=== PATIENT | male | born 1980 | race Hispanic/Latino ===

== ENCOUNTER 2018-06-14 10:24 | Inpatient (IN) | payer OTHER ==
[~2018-06-14] VITALS: Ht 162.6 cm; Wt 45.9 kg
[2018-06-14] MEDS ORDERED: SODIUM CHLORIDE 0.9% 500ML 500 ML IV STA (11:02)
[2018-06-14] MEDS ORDERED: RISPERDONE PO (11:30)
[2018-06-14] MEDS ORDERED: CALCIUM CARBON500 MG PO (11:30)
[2018-06-14] MEDS ORDERED: DOCUSATE SODIUM PO (11:30)
[2018-06-14] MEDS ORDERED: BENZTROPINE MESY1 MG PO (11:30)
[2018-06-14] MEDS ORDERED: VALPROIC A250 MG/5 M PO (11:30)
[2018-06-14] MEDS ORDERED: VITAMIN D PO (11:30)
[2018-06-14] MEDS ORDERED: NYSTATIN-TRIAMC15 GM TOP (11:30)
--- NOTE | 2018-06-14 12:56 | Diagnostic Imaging Report ---
Examination: Single AP view of the chest. COMPARISON: None. INDICATION: Cerebral palsy patient with abnormal behavior DISCUSSION: The lungs are reasonably well inflated. No focal airspace consolidation, pleural effusion, or pneumothorax. Heart size is normal when accounting for AP technique and reverse lordotic positioning. The esophagus is dilated and air-filled. Partially visualized abdomen shows a massively distended, air-filled stomach with multiple air-filled loops of small and large bowel. No acute osseous abnormality. IMPRESSION: No acute cardiopulmonary abnormality. Distended, air-filled esophagus and partially visualized infradiaphragmatic bowel likely reflective of ileus. Signed by: Dr. Darren Humphreys M.D. on 06/14/2018 12:52 PM
--- NOTE | 2018-06-14 13:00 | Diagnostic Imaging Report ---
Exam: Abdominal film Clinical History: Cerebral palsy, patient not acting right Comparison: None. DISCUSSION: Frontal view of the abdomen shows diffuse gaseous distention of the small or large bowel. There are several mildly dilated loops of small bowel in the central abdomen which measure approximately 4.0 cm. There is small amount of air is noted in the rectum, with presence of prominent stool. No abnormal calcifications. No definite pneumoperitoneum. Generalized osteopenia. Degenerative changes seen in bilateral hip joints and lumbosacral spine, with leftward curvature. IMPRESSION: 1. Diffuse gaseous distention of the small and large bowel. Several mildly dilated loops of small bowel are noted in the central abdomen. Small amount of air is noted in the rectum, with presence of prominent stool. This may be represent obstruction secondary to impaction The staff physician below has personally reviewed this exam on the date of dictation. Signed by: Dr. Frank Dave M.D. on 06/14/2018 12:56 PM
[2018-06-14] MEDS ORDERED: CEFOXITIN 1GM/ DEXTROSE 50ML ML IV SCH (14:00)
[2018-06-14] MEDS ORDERED: ONDANSETRON HCL INJ 2 MG/ML VIAL IV PRN (14:00)
[2018-06-14] MEDS ORDERED: CEFOXITIN 1GM/ DEXTROSE 50ML 50 ML IV SCH (14:00)
--- NOTE | 2018-06-14 14:30 | Diagnostic Imaging Report ---
EXAMINATION: CT of the abdomen and pelvis without contrast. TECHNIQUE: Spiral CT images of the abdomen and pelvis were performed from the lung bases to the lesser trochanters. No intravenous contrast was given per physician's request. Coronal and sagittal reformatted images were obtained. COMPARISON: KUB 06/14/2018 CLINICAL HISTORY:Abdominal distention, history of cerebral palsy DISCUSSION: ABSENCE OF INTRAVENOUS CONTRAST DECREASES SENSITIVITY FOR DETECTION OF FOCAL LESIONS AND VASCULAR PATHOLOGY. ABDOMEN/PELVIS: LOWER THORAX: Lung bases are clear. HEPATOBILIARY: No focal hepatic lesions. No intra or extrahepatic biliary ductal dilation. GALLBLADDER: No radio-opaque stones or sludge. No wall thickening. SPLEEN: No splenomegaly. PANCREAS: No focal masses or ductal dilatation. ADRENALS: No adrenal nodules. KIDNEYS/URETERS: No hydronephrosis, stones, contour abnormalities . Mild left pelviectasis. Left extrarenal pelvis. PELVIC ORGANS/BLADDER: Bladder is grossly unremarkable, without focal lesions or wall thickening. PERITONEUM/RETROPERITONEUM: No free air or fluid. LYMPH NODES: No intra-abdominal,retroperitoneal, pelvic or inguinal lymphadenopathy. VESSELS: Unremarkable for noncontrast exam. GI TRACT: Diffuse gaseous distention of the small and large bowel, with a few dilated loops of mid to distal ileum, measuring 4.5 cm in diameter (series 2, image 48). Other loops of small bowel bowel have normal caliber, without a definite transition point. The large bowel is normal in caliber. Prominent retained stool in the distal sigmoid extending to the rectum which appears hardened (for example series 2, images 71-78). No wall thickening. Stomach is moderately distended. BONES AND SOFT TISSUES: No aggressive lytic lesions. Mild leftward curvature of the lumbosacral spine. Generalized osteopenia. Soft tissues are grossly unremarkable. IMPRESSION: 1. Diffuse gaseous distention of the small or large bowel. There are a few dilated loops of mid to distal ileum which measure 4.5 cm in diameter. Other loops of small bowel are normal in caliber, without a definite transition point. The large bowel is normal in caliber. Given the prominent retained stool in the distal sigmoid extending to the rectum, findings are suggestive of mild obstruction secondary to impaction. No pneumoperitoneum. Signed by: Dr. Frank Dave M.D. on 06/14/2018 2:26 PM
[2018-06-14] MEDS: SODIUM CHLORIDE 0.9% 1000ML 1,000 ML IV SCH ×2 (15:00→17:24)
[2018-06-14] MEDS ORDERED: MORPHINE SULFATE 2 MG/ML SYR IV STA (16:27)
[2018-06-14] MEDS ORDERED: ONDANSETRON HCL INJ 2 MG/ML VIAL IV ONE (16:45)
[2018-06-14 17:04] VITALS: BP 114/72
--- NOTE | 2018-06-14 17:21 | Diagnostic Imaging Report ---
Examination: Single AP view of the chest. COMPARISON: Chest one view 06/14/2018, CT abdomen and pelvis 06/14/2018 INDICATION: Suspected aspiration IMPRESSION: 1. Lines and Tubes: Enteric tube in place, with distal tip coiled in the stomach body. 2. Lungs are mildly hypoinflated but grossly clear, without consolidation or effusion. 3. Cardiomediastinal silhouette is normal when accounting for AP technique. Pulmonary vasculature is normal. 4. No acute bony abnormalities. 5. Gaseous distention of the small and large bowel is again noted. Signed by: Dr. Frank Dave M.D. on 06/14/2018 5:17 PM
[2018-06-14 17:49] VITALS: BP 114/72
[2018-06-14 20:00] VITALS: BP 116/73
[2018-06-15] VITALS (8 sets, daily range): BP systolic 100–137; BP diastolic 57–93
[2018-06-15] MEDS: CEFOXITIN SOD 1 GM VIAL IV SCH ×3 (01:56→17:30)
[2018-06-15 05:08] LABS: BASOPHILS % 0.4 % (0.0-1.0); EOSINOPHILS # (AUTO) 0.1 (0.0-0.4); EOSINOPHILS % 0.5 % (0.0-6.0); HEMATOCRIT 33.8 % (38.2-49.6); HEMOGLOBIN 11.6 g/dL (14.0-18.0); LYMPHOCYTES % 28.8 % (18.0-39.1); MEAN CORPUSCULAR HEMOGLOBIN 32.1 pg (28-32); MEAN CORPUSCULAR HGB CONC 34.3 g/dL (31-35); MEAN CORPUSCULAR VOLUME 93.6 fL (81-99); MONOCYTES # (AUTO) 1.2 (0.2-0.8); MONOCYTES % 11.5 % (4.4-11.3); NEUTROPHILS # (AUTO) 6.1 (2.1-6.9); NEUTROPHILS % 58.6 % (38.7-80.0); PLATELET COUNT 264 x10e3/uL (140-360); RED BLOOD COUNT 3.61 x10e6/uL (4.3-5.7); RED CELL DISTRIBUTION WIDTH 11.8 % (11.7-14.4)
[2018-06-15 05:40] LABS: ALANINE AMINOTRANSFERASE 12 IU/L (0-55); ALBUMIN 3.3 g/dL (3.5-5.0); ALBUMIN/GLOBULIN RATIO 1.1 (0.8-2.0); ALKALINE PHOSPHATASE 70 IU/L (40-150); ANION GAP 13.7 mmol/L (8-16); BLOOD UREA NITROGEN 5 mg/dL (7-26); BUN/CREATININE RATIO 8 (6-25); CARBON DIOXIDE 22 mmol/L (22-29); CHLORIDE 108 mmol/L (98-107); CREATININE, SERUM 0.59 mg/dL (0.72-1.25); EST GLOMERULAR FILTRATION RATE > 60 ML/MIN (60-); GLUCOSE 102 mg/dL (74-118); POTASSIUM 3.7 mmol/L (3.5-5.1); SODIUM 140 mmol/L (136-145)
[2018-06-15] MEDS: SODIUM CHLORIDE 0.9% 1000ML 1,000 ML IV SCH (05:52)
[2018-06-15] MEDS ORDERED: ACETAMINOPHEN 325 MG SUPP PR PRN (11:15)
[2018-06-15] MEDS ORDERED: MAGNESIUM HYDROXIDE 30 ML UDC PO ONE (11:45)
[2018-06-15] MEDS ORDERED: MINERAL OIL 132 ML BTL PR ONE (11:45)
--- NOTE | 2018-06-15 11:48 | History and Physical ---
HPI: A 37-year-old male who has a past medical history positive for cerebral palsy, seizures, autism, psychosis, epilepsy, chronic constipation that came from the [facility] because of tremors and abdominal pain. So, patient was found to have ileus. NG tube was placed. Patient was admitted to the hospital. REVIEW OF SYSTEMS: Patient is unable to communicate with me, so we cannot get any information. PAST MEDICAL HISTORY: As per nurses' notes, seizures, he is a [facility] resident. He has history of cerebral palsy, autism, psychosis, epilepsy, chronic constipation, mental illness. ALLERGIES: HE IS NOT ALLERGIC TO ANY MEDICATION. SOCIAL HISTORY: He lives in a [facility]. We do not know if he smokes or drinks. PHYSICAL EXAMINATION VITAL SIGNS: Blood pressure 119/67, temperature 98.1, heart rate 80 per minute, respiratory rate is 20 per minute, oxygen saturation 96%. HEART: Shows regular rate and rhythm. Normal S1, S2 sounds. LUNGS: Clear bilaterally. ABDOMEN: Soft. EXTREMITIES: Show no evidence of cyanosis, edema, or trauma. He has atrophy in upper and lower extremities. LABORATORY DATA: On the BMP, sodium 140, potassium 3.7, chloride 108, CO2 of 22, BUN 55, creatinine 0.59, glucose 102. On the CBC, white blood count 10.4, hemoglobin 11.6, hematocrit 33.8, platelet count 264,000. AST 13, ALT 12, total bilirubin 0.7, alkaline phosphatase 70. CT of the abdomen showed ileus and a possible fecal impaction. Blood culture has been sent. FINAL IMPRESSION 1. Ileus. 2. Fecal impaction. 3. Anemia of chronic disease. 4. Cerebral palsy. 5. Dysphagia. PLAN OF TREATMENT: We are going to continue NG tube to suction. Continue IV fluids. Continue Zofran 4 mg IV q.4 hours as needed. Cefoxitin has been started at 1 gram IV q.[address] Vimal Mclaughlin for gastroenterology, Dr. Babatunde Levi for surgery, and we are going to repeat another KUB today. Speech therapy has been ordered also, the patient has apparent difficulty swallowing. He was on a pureed diet with thickened fluids. We are going to order Fleet enema today and then go from there. Job#: [id number] DAMIEN
--- NOTE | 2018-06-15 12:07 | Diagnostic Imaging Report ---
PROCEDURE:X-RAY ABDOMEN - KUB COMPARISON:KUB and CT Abdomen/Pelvis 06/14/18. INDICATIONS:AUTISM, BOWEL OBSTRUCTION FINDINGS: NG tube terminates in the expected location of the proximal duodenum. Air filled mildly distended small and large bowel loops are again noted. The degree of distension is similar to prior KUB on 06/14/18. Stool is again noted in the rectum. No evidence of free intraperitoneal air. Generalized osteopenia. Degenerative changes of the lower lumbar spine. CONCLUSION: Unchanged distension of small and large bowel loops with stool in the rectum. Findings may represent mild obstruction secondary to rectal fecal impaction or non-obstructive ileus. Dictated by: MARTINEZ WALKER M.D. on 06/15/2018 at 12:13 Electronically approved by: MARTINEZ WALKER M.D. on 06/15/2018 at 12:13
[2018-06-15] MEDS: DEXTROSE 5%/0.9% SOD CHL 1,000 ML IV SCH (12:10)
[2018-06-15] MEDS ORDERED: PEG (High)/E-LYTE SOLN 4,000 ML BTL PO ONE (16:15)
[2018-06-15] MEDS ORDERED: VALPROATE SODIUM PO SCH (17:00)
[2018-06-15] MEDS ORDERED: NYSTATIN TOP SCH (17:00)
[2018-06-15] MEDS ORDERED: TRIAMCIN TOP SCH (17:00)
[2018-06-15] MEDS: VALPROATE 250MG/5ML ORAL LIQ 5ml PO SCH (17:29)
[2018-06-15] MEDS: BENZTROPINE MESYLATE 1 MG TAB PO SCH (17:29)
[2018-06-15] MEDS: NYSTATIN/TRIAMCINOLONE 30 GM CR TOP SCH (17:29)
[2018-06-15] MEDS ORDERED: RISPERDONE PO SCH (21:00)
[2018-06-15] MEDS: RISPERIDONE 1 MG TAB PO SCH (22:03)
[2018-06-15] MEDS ORDERED: BISACODYL 5 MG TAB EC PO ONE (23:45)
[2018-06-16] VITALS: BP 116/68
[2018-06-16] MEDS: DEXTROSE 5%/0.9% SOD CHL 1,000 ML IV SCH ×2 (00:25→14:00)
[2018-06-16] MEDS ORDERED: BISACODYL 5 MG TAB EC PO ONE ×3 (00:30→01:30)
[2018-06-16] MEDS: CEFOXITIN SOD 1 GM VIAL IV SCH ×3 (02:11→18:32)
[2018-06-16 04:00] VITALS: BP 144/65
[2018-06-16 05:34] LABS: ANION GAP 15.3 mmol/L (8-16); BLOOD UREA NITROGEN < 5 mg/dL (7-26); CALCIUM 9.2 mg/dL (8.4-10.2); CARBON DIOXIDE 24 mmol/L (22-29); CHLORIDE 108 mmol/L (98-107); CREATININE, SERUM 0.61 mg/dL (0.72-1.25); EST GLOMERULAR FILTRATION RATE > 60 ML/MIN (60-); GLUCOSE 115 mg/dL (74-118); POTASSIUM 3.3 mmol/L (3.5-5.1); SODIUM 144 mmol/L (136-145)
[2018-06-16 05:52] LABS: BUN/CREATININE RATIO 8 (6-25)
[2018-06-16 06:09] LABS: FOLATE 17.8 ng/mL (7.0-15.4)
--- NOTE | 2018-06-16 06:14 | Diagnostic Imaging Report ---
ABDOMEN-1VIEW (KUB) Clinical history: Ileus Technique: AP view abdomen Comparison: 06/14/2018 Findings: NG tube tip seen projecting over the right upper quadrant. Hemidiaphragms are excluded from view. Interval decrease in gaseous distention of small bowel. Gas is predominantly seen throughout slightly prominent colon; resolved rectal stool burden. Unchanged bones. Impression: Improved ileus. Signed by: Dr Lilibeth Morris MD on 06/16/2018 6:11 AM
[2018-06-16 06:20] LABS: FERRITIN 44.91 ng/mL (21.81-274.66)
[2018-06-16 07:46] VITALS: BP 96/73
[2018-06-16] MEDS: DOCUSATE SODIUM LIQD 100 MG/10 ML UDC NG SCH (08:44)
[2018-06-16] MEDS: CHOLECALCIFEROL 400 UNIT TAB PO SCH (08:44)
[2018-06-16] MEDS: VALPROATE 250MG/5ML ORAL LIQ 5ml PO SCH ×2 (08:44→16:40)
[2018-06-16] MEDS: BENZTROPINE MESYLATE 1 MG TAB PO SCH ×2 (08:44→16:40)
[2018-06-16] MEDS: NYSTATIN/TRIAMCINOLONE 30 GM CR TOP SCH ×2 (08:48→16:40)
[2018-06-16] MEDS ORDERED: DOCUSATE SODIUM PO SCH (09:00)
[2018-06-16] MEDS ORDERED: VITAMIN D PO SCH (09:00)
[2018-06-16 11:34] VITALS: BP 103/78
[2018-06-16] MEDS ORDERED: MAGNESIUM HYDROXIDE 30 ML UDC PO ONE (15:10)
[2018-06-16 16:25] VITALS: BP 120/80
[2018-06-16] MEDS ORDERED: POTASSIUM CHLORIDE 20MEQ/100ML 200 ML IV ONE (17:45)
--- NOTE | 2018-06-16 18:22 | Progress Note ---
DATE: INTERNAL MEDICINE PROGRESS NOTE SUBJECTIVE: This 29-year-old male came here with abdominal distention. The abdomen is not as distended as before. He was found to have an ileus. The patient is on an NG tube with suctioning. PHYSICAL EXAMINATION VITAL SIGNS: Blood pressure 120/80. Temperature 98.8. Heart rate 82 per minute. Respiratory rate 18 per minute. Oxygen saturation 98%. HEART: Regular rhythm. Normal S1, S2 sounds. LUNGS: Clear bilaterally. ABDOMEN: Soft. EXTREMITIES: No evidence of cyanosis, edema or trauma. LABS: On the BMP, sodium 144, potassium 3.3, chloride 108, CO2 24, BUN 5, creatinine 0.61, glucose 115. On the CBC, white blood count 10.4, hemoglobin 11.6, hematocrit 33.8, platelet count 264,000. AST 13, ALT 12, total bilirubin 0.7, alkaline phosphatase 70. FINAL IMPRESSION 1. Ileus. 2. Fecal impaction, which is slowly resolving. 3. Anemia of chronic disease. 4. Cerebral palsy. 5. Dysphagia. PLAN OF TREATMENT 1. Continue IV fluids at 80 mL an hour. 2. Continue Zofran 4 mg IV q.4 h. as needed. 3. Cefoxitin 1 gram IV q.8 h. for the concern about sepsis on admission, but he does not seem to be septic, and blood cultures are negative. 4. Continue cholecalciferol 400 units daily. 5. Benztropine 1 mg twice a day. 6. Nystatin and triamcinolone cream twice a day. 7. Risperdal 2 mg at bedtime. 8. Valproic acid 250 mg twice a day. 9. Colace [address] Vimal Mclaughlin has been consulted from the gastroenterology point of view and Dr. Babatunde Levi from the surgical point of view. Job#: [id number]
[2018-06-16 20:00] VITALS: BP 121/94
[2018-06-16] MEDS: RISPERIDONE 1 MG TAB PO SCH (21:12)
[2018-06-17] VITALS (8 sets, daily range): BP systolic 98–116; BP diastolic 52–87
[2018-06-17] MEDS: DEXTROSE 5%/0.9% SOD CHL 1,000 ML IV SCH ×3 (00:45→06:40)
[2018-06-17] MEDS: CEFOXITIN SOD 1 GM VIAL IV SCH ×2 (01:52→09:00)
--- NOTE | 2018-06-17 05:33 | Diagnostic Imaging Report ---
ABDOMEN-1VIEW (KUB) Clinical history: Ileus Technique: AP view abdomen Comparison: Previous day Findings: Continued decrease in gaseous distention of bowel. Gas is predominantly seen throughout nondilated colon. Partially visualized NG tube of the right upper abdomen. Hemidiaphragms are excluded. Impression: Continued decrease in gas-filled loops of bowel. Signed by: Dr Lilibeth Morris MD on 06/17/2018 5:29 AM
[2018-06-17 05:55] LABS: ANION GAP 12.9 mmol/L (8-16); BLOOD UREA NITROGEN < 5 mg/dL (7-26); CALCIUM 9.5 mg/dL (8.4-10.2); CARBON DIOXIDE 24 mmol/L (22-29); CHLORIDE 107 mmol/L (98-107); CREATININE, SERUM 0.59 mg/dL (0.72-1.25); EST GLOMERULAR FILTRATION RATE > 60 ML/MIN (60-); GLUCOSE 110 mg/dL (74-118); POTASSIUM 3.9 mmol/L (3.5-5.1); SODIUM 140 mmol/L (136-145)
[2018-06-17 05:56] LABS: BUN/CREATININE RATIO 8 (6-25)
[2018-06-17 06:45] LABS: AMYLASE 43 U/L (25-125); LIPASE 9 U/L (8-78)
[2018-06-17] MEDS: NYSTATIN/TRIAMCINOLONE 30 GM CR TOP SCH ×2 (09:00→17:00)
[2018-06-17] MEDS: VALPROATE 250MG/5ML ORAL LIQ 5ml PO SCH ×2 (09:00→17:00)
[2018-06-17] MEDS: BENZTROPINE MESYLATE 1 MG TAB PO SCH ×2 (09:00→17:00)
[2018-06-17] MEDS: CHOLECALCIFEROL 400 UNIT TAB PO SCH (09:00)
[2018-06-17] MEDS: DOCUSATE SODIUM LIQD 100 MG/10 ML UDC NG SCH (09:00)
--- NOTE | 2018-06-17 16:11 | Progress Note ---
DATE: INTERNAL MEDICINE PROGRESS NOTE SUBJECTIVE: The patient is doing well. No significant complaints. PHYSICAL EXAMINATION VITAL SIGNS: Blood pressure 109/71. Temperature 97.6. Heart rate 72 per minute. Respiratory rate 19 per minute. Oxygen saturation 99%. HEART: Regular rhythm. Normal S1, S2 sounds. LUNGS: Clear bilaterally. ABDOMEN: Soft. No tenderness. No distention. EXTREMITIES: No evidence of cyanosis, edema or trauma. LABS: On the BMP, sodium 140, potassium 3.9, chloride 107, CO2 24, BUN 5, creatinine 0.59. Glucose 111. On the CBC, white blood count 10.4, hemoglobin 9.6, hematocrit 33.8, platelet count 264,000. FINAL IMPRESSION 1. Old ileus. 2. Fecal impaction. 3. Iron deficiency anemia. 4. Cerebral palsy. 5. Mental retardation. PLAN OF TREATMENT 1. We are going to start a diet today, diet with thickened fluids. 2. Continue with D5 normal saline at 80 mL an hour. 3. Zofran 4 mg IV q.4 h. as needed. 4. Cefoxitin 1 gram IV q.8 h. 5. Benztropine mesylate 1 mg twice a day. 6. Cholecalciferol 400 units daily. 7. Nystatin twice a day. 8. Risperdal 2 mg at bedtime. 9. Valproic acid 250 mg twice a day. 10. Tylenol 325 mg q.4 h. as needed. 11. Colace 50 mg daily. Job#: [id number]
[2018-06-17] MEDS: RISPERIDONE 1 MG TAB PO SCH (21:00)
[2018-06-18] VITALS (9 sets, daily range): BP systolic 105–172; BP diastolic 64–85
[2018-06-18] MEDS: DEXTROSE 5%/0.9% SOD CHL 1,000 ML IV SCH ×2 (06:04→14:34)
[2018-06-18] MEDS: IRON-VITAMIN-MINERAL CAPSULE PO SCH ×2 (10:14→17:30)
[2018-06-18] MEDS: VALPROATE 250MG/5ML ORAL LIQ 5ml PO SCH ×2 (10:14→17:30)
[2018-06-18] MEDS: BENZTROPINE MESYLATE 1 MG TAB PO SCH ×2 (10:14→17:30)
[2018-06-18] MEDS: CHOLECALCIFEROL 400 UNIT TAB PO SCH (10:14)
[2018-06-18] MEDS: DOCUSATE SODIUM LIQD 100 MG/10 ML UDC NG SCH (10:14)
[2018-06-18] MEDS: NYSTATIN/TRIAMCINOLONE 30 GM CR TOP SCH ×2 (11:28→17:00)
[2018-06-18] MEDS: RISPERIDONE 1 MG TAB PO SCH (21:22)
[2018-06-19] VITALS (8 sets, daily range): BP systolic 115–134; BP diastolic 70–79
[2018-06-19] MEDS: DEXTROSE 5%/0.9% SOD CHL 1,000 ML IV SCH ×3 (03:33→21:38)
[2018-06-19] MEDS: NYSTATIN/TRIAMCINOLONE 30 GM CR TOP SCH ×2 (10:00→17:11)
[2018-06-19] MEDS: IRON-VITAMIN-MINERAL CAPSULE PO SCH ×2 (10:00→17:11)
[2018-06-19] MEDS: CHOLECALCIFEROL 400 UNIT TAB PO SCH (10:00)
[2018-06-19] MEDS: BENZTROPINE MESYLATE 1 MG TAB PO SCH ×2 (10:00→17:11)
[2018-06-19] MEDS: VALPROATE 250MG/5ML ORAL LIQ 5ml PO SCH ×2 (10:00→17:11)
[2018-06-19] MEDS: DOCUSATE SODIUM LIQD 100 MG/10 ML UDC NG SCH (10:00)
--- NOTE | 2018-06-19 19:51 | Progress Note ---
DATE: INTERNAL MEDICINE PROGRESS NOTE SUBJECTIVE: Patient is doing well. No significant complaint, no more vomiting. Tolerating a diet. He is going to back to the residential tomorrow. PHYSICAL EXAM VITAL SIGNS: Blood pressure 118/78. Temperature 88.6. Heart rate 86 per minute. Respiratory rate 18 per minute. Oxygen saturation 100%. HEART: Regular rhythm. Normal S1, S2 sounds. LUNGS: Clear bilaterally. ABDOMEN: Soft. EXTREMITIES: Show no evidence of cyanosis or trauma, but he has atrophy in upper and lower extremities. On the BMP sodium 140, potassium 3.9, chloride 107, CO2 24, BUN 5, creatinine 0.59, glucose of 110. On the CBC, white blood count 10.4, hemoglobin 11.6, hematocrit 33.8, platelet count 264,000. AST 13, ALT 12, total bilirubin 0.7, alkaline phosphatase 70. FINAL IMPRESSIONS 1. Ileus, which is resolved. 2. Fecal impaction, which is resolved. 3. Cerebral palsy. 4. Mental retardation. 5. Iron deficiency anemia. PLAN OF TREATMENT 1. We are going to discontinue IV fluids. 2. Continue Zofran 4 mg IV q.4 h as needed. 3. Benztropine mesylate 1 mg twice a day. 4. Risperdal 2 mg at bedtime. 5. Valproic acid 250 mg twice a day. 6. Tylenol 625 mg q.4 h as needed. 7. Colace 60 mg daily. 8. Ferrous fumarate combined with folic acid and vitamin B complex 1 tablet twice a day. 9. Cholecalciferol 400 units daily. 10. Patient going to a residential tomorrow. Job#: [id number]
[2018-06-19] MEDS: RISPERIDONE 1 MG TAB PO SCH (21:38)
[2018-06-20 00:16] VITALS: BP 119/82
[2018-06-20 05:19] VITALS: BP 130/81
[2018-06-20] MEDS: CHOLECALCIFEROL 400 UNIT TAB PO SCH (08:42)
[2018-06-20] MEDS: BENZTROPINE MESYLATE 1 MG TAB PO SCH (08:42)
[2018-06-20] MEDS: IRON-VITAMIN-MINERAL CAPSULE PO SCH (08:42)
[2018-06-20] MEDS: VALPROATE 250MG/5ML ORAL LIQ 5ml PO SCH (08:42)
[2018-06-20] MEDS: DOCUSATE SODIUM LIQD 100 MG/10 ML UDC NG SCH (08:42)
[2018-06-20] MEDS: NYSTATIN/TRIAMCINOLONE 30 GM CR TOP SCH (08:45)
[2018-06-20 09:49] VITALS: BP 104/55
[2018-06-20 11:16] VITALS: BP 104/55
[2018-06-20 12:00] VITALS: BP 122/65
--- NOTE | 2018-06-20 12:24 | Progress Note ---
DATE: NO DICTATION, LENGTH 4 SECONDS. Job#: [id number] MH
--- NOTE | 2018-06-20 13:38 | Discharge Summary ---
HISTORY OF PRESENT ILLNESS: Patient is a 37-year-old male who lives in an assisted living place who had a history of mental retardation and cerebral palsy, came here with ileus. Ileus resolved. He was initially with an NG tube. NG tube was removed and the diet was slowly upgraded. Patient doing fine today. He had a fecal impaction which was removed. PHYSICAL EXAM VITAL SIGNS: Blood pressure 104/55, temperature 101.2, heart rate 120 per minute, respiratory rate 18 per minute, oxygen saturation 96%. HEART: Shows regular rhythm. Normal S1, S2 sounds. LUNGS: Clear bilaterally. ABDOMEN: Soft. On the BMP, sodium 140, potassium 3.9, chloride 107, CO2 24, BUN 5, creatinine 0.59, glucose 110. On the CBC, white blood count 10,400, hemoglobin 11.6, hematocrit 33.8, platelet count 264,000. AST 13, ALT 12, total bilirubin 0.7, alkaline phos 70. FINAL IMPRESSIONS 1. Ileus, which is resolved. 2. Fecal impaction, which is resolved. 3. Anemia, which is resolved. 4. Fever today, which we are going to investigate source of fever. We are going to order a chest x-ray, blood culture, urine culture, and then infectious disease consult with Dr. Finley. We are going to hold on on the discharge for now. BHAVIK HURTADO MD Job#: [id number] TA
[2018-06-22 06:15] LABS: ENDOMYSIAL ANTIBODIES, IGA Negative (Negative)
== END 2018-06-20 13:00 | disposition home or self-care (01) | DRG 389 ==
LOC: FSED 10:24 → ERHOLD 14:12 → MED/SURG 16:45 → MED/SURG2 23:55
PROVIDERS: ADMIT Internal Medicine; ATTEND Internal Medicine
DX: K56.699 Other intestinal obstruction unspecified as to partial versus complete obstruction (principal); F84.0 Autistic disorder; K59.00 Constipation, unspecified; D63.8 Anemia in other chronic diseases classified elsewhere; G80.9 Cerebral palsy, unspecified; R13.10 Dysphagia, unspecified; G40.909 Epilepsy, unspecified, not intractable, without status epilepticus; F06.8 Other specified mental disorders due to known physiological condition; K56.7 Ileus, unspecified; D50.9 Iron deficiency anemia, unspecified; R50.9 Fever, unspecified
CPT/HCPCS: 36415; 71045; 74018; 74176; 80048; 80053; 80164; 81003; 82150; 82607; 82728; 82746; 82784; 82948; 83516; 83540; 83690; 83735; 84466; 85025; 85045; 86256; 87040; 99284; J0694; J2270; J2405; J3480; J7030; J7040; J7042

== ENCOUNTER 2018-07-11 14:02 | Emergency (ER) | payer OTHER ==
[~2018-07-11] VITALS: Ht 160 cm; Wt 45.1 kg
[~2018-07-11 14:02] MED LIST: BENZTROPINE MESY1 MG PO; CALCIUM CARBON500 MG PO; DOCUSATE SODIUM PO; NYSTATIN-TRIAMC15 GM TOP; RISPERDONE PO; VALPROIC A250 MG/5 M PO; VITAMIN D PO
[2018-07-11] MEDS ORDERED: ONDANSETRON HCL 4 MG ORAL DISINTEGRATING TAB PO ONE (14:30)
[2018-07-11] MEDS ORDERED: ZOFRAN ODT4 MG SL (15:06)
== END 2018-07-11 15:19 | disposition home or self-care (01) ==
LOC: FSED 14:02
DX: R11.2 Nausea with vomiting, unspecified (principal)
CPT/HCPCS: 99283